=== PATIENT | male | born 1940 | race Caucasian/White ===

== ENCOUNTER 2019-04-01 05:10 | Inpatient (IN) | payer MEDICARE ==
[~2019-04-01] VITALS: Ht 162.6 cm; Wt 90.4 kg
--- NOTE | 2019-04-01 05:19 | NUR ---
received report from Denzel, patient transferred from [facility], c/o sudden low back pain radiates to upper back / neck and chest started around 1730. CT scan shows possible AAA, dissection or plague. 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 on pacemaker. patient alert and oriented. had total of 2.5 mg dilaudid and 50 mcg fentanyl INSURANCE VERIFICATION REP.
[2019-04-01] MEDS ORDERED: LABETALOL 250 MG in DEXTROSE 5% 200 ML IV PRN (05:30)
[2019-04-01] MEDS ORDERED: LABETALOL 5MG/ML, 20ML IVPush ONE (05:30)
[2019-04-01] MEDS ORDERED: PLEASE ENTER ALLERGIES MC SCH (05:30)
--- NOTE | 2019-04-01 05:30 | NUR ---
ERP on the phone with Vascular Surgeon.
--- NOTE | 2019-04-01 05:45 | NUR ---
ERP at bedside talking to patient about the plan of care. No surgery at this time.
--- NOTE | 2019-04-01 05:53 | NUR ---
technical training instructor at bedside for blood draw.
[2019-04-01] MEDS ORDERED: METO-93 PO (06:00)
[2019-04-01] MEDS ORDERED: LOSA50TA14 PO (06:00)
[2019-04-01] MEDS ORDERED: CALC60FO2 TP (06:00)
[2019-04-01] MEDS ORDERED: HYDR25TA11 PO (06:00)
[2019-04-01] MEDS ORDERED: TERA10CA3 PO (06:00)
[2019-04-01] MEDS ORDERED: APRE30TA2 PO (06:00)
[2019-04-01] MEDS ORDERED: DOCU240C53 PO (06:00)
[2019-04-01] MEDS ORDERED: HYDR-3342 PO (06:00)
[2019-04-01] MEDS ORDERED: NITR0.4T28 SL (06:00)
[2019-04-01] MEDS ORDERED: ATOR-2 PO (06:00)
[2019-04-01] MEDS ORDERED: FINA5TAB4 PO (06:00)
[2019-04-01] MEDS ORDERED: DICL1KIT14 TP (06:00)
[2019-04-01] MEDS ORDERED: DEXA4TAB66 PO (06:00)
[2019-04-01] MEDS ORDERED: FURO-92 PO (06:00)
[2019-04-01] MEDS ORDERED: SPIR50TA4 PO (06:00)
[2019-04-01] MEDS ORDERED: TRAZ50TA66 PO (06:00)
[2019-04-01] MEDS ORDERED: OMEP-110 PO (06:00)
[2019-04-01] MEDS ORDERED: ISOS30TA8 PO (06:00)
[2019-04-01] MEDS ORDERED: CLOB15CR19 TP (06:00)
[2019-04-01] MEDS ORDERED: urea (06:05)
[2019-04-01 06:14] LABS: ALBUMIN 3.4 g/dL (3.4-5.0); ANION GAP 10 mmol/L (5-15); CALCIUM 8.3 mg/dL (8.5-10.1); CHLORIDE 117 mmol/L (98-107)
[2019-04-01 06:20] LABS: CREATININE 2.64 mg/dL (0.7-1.3); TROPONIN I 0.039 ng/mL (0.000-0.045)
--- NOTE | 2019-04-01 06:22 | NUR ---
patient sleeping, respiration unlabored. no complaints of pain.
--- NOTE | 2019-04-01 06:48 | NUR ---
Report from Jorge BECKER. Pt resting in bed with eyes closed, resp even and unlabored, DIMA.
--- NOTE | 2019-04-01 07:22 | NUR ---
Pt resting in bed with eyes closed, easily awakens to this RN entering room. Pt denies needs.
--- NOTE | 2019-04-01 07:34 | NUR ---
Report called to Lai BECKER on card tele. Floor ready for pt transport.
[2019-04-01 08:00] VITALS: BP 171/83
[2019-04-01] MEDS ORDERED: MULT-658 PO (08:46)
[2019-04-01] MEDS ORDERED: ASPI-496 PO (08:46)
[2019-04-01] MEDS ORDERED: CALC0.25 PO (08:46)
[2019-04-01] MEDS ORDERED: POTA20TA91 PO (08:46)
[2019-04-01] MEDS ORDERED: OMEG1CAP24 PO (08:46)
[2019-04-01] MEDS ORDERED: ONDANSETRON 2MG/ML, 2ML IVPush PRN (09:00)
[2019-04-01] MEDS ORDERED: CYCLOBENZAPRINE 10 MG TABLET PO PRN (09:00)
[2019-04-01] MEDS ORDERED: GUAIFENESIN/COD200MG-20MG/10ML LIQUID PO PRN (09:00)
[2019-04-01] MEDS ORDERED: hydrALAzine 20 MG/ML, 1ML IVPush PRN (09:00)
[2019-04-01] MEDS ORDERED: DICLOFENAC SODIUM TP PRN (09:00)
[2019-04-01] MEDS ORDERED: ACETAMINOPHEN 325 MG TABLET PO PRN (09:00)
[2019-04-01] MEDS: METOPROLOL SUCCINATE 50 MG TAB.ER.24H PO SCH (09:00)
[2019-04-01] MEDS ORDERED: CLOBETASOL PROPIONATE CRM 0.05%, 15GM TP SCH ×3 (09:00→19:42)
[2019-04-01] MEDS: FINASTERIDE 5 MG TABLET PO SCH (09:00)
[2019-04-01] MEDS ORDERED: DOCUSATE 100 MG CAPSULE PO PRN (09:00)
[2019-04-01] MEDS ORDERED: CALCITRIOL 0.25 MCG CAPSULE PO SCH (09:00)
[2019-04-01] MEDS: morphine SULFATE 10 MG/ML, 1ML IVPush PRN ×2 (09:20→21:05)
[2019-04-01] MEDS: MULTIVITAMIN 1 TABLET PO SCH (10:23)
[2019-04-01] MEDS: OMEGA-3/FISH OIL CAPSULE PO SCH (10:23)
[2019-04-01] MEDS: DOCUSATE CALCIUM 240 MG CAPSULE PO SCH (10:23)
[2019-04-01] MEDS: OMEPRAZOLE 20 MG CAPSULE.DR PO SCH (10:23)
[2019-04-01] MEDS: POTASSIUM CHLORIDE 20 MEQ TAB.ER.PRT PO SCH ×2 (10:23→20:49)
[2019-04-01] MEDS: SPIRONOLACTONE 50 MG TABLET PO SCH ×2 (10:23→20:50)
[2019-04-01] MEDS: ASPIRIN 81 MG TABLET EC PO SCH (10:24)
[2019-04-01] MEDS: LOSARTAN 50MG TABLET PO SCH ×2 (10:24→20:49)
[2019-04-01] MEDS: ISOSORBIDE MONONITRATE ER 30 MG TABLET PO SCH (10:24)
[2019-04-01] MEDS: FUROSEMIDE 20 MG TABLET PO SCH (10:24)
[2019-04-01 12:50] LABS: TROPONIN I 0.022 ng/mL (0.000-0.045)
[2019-04-01 14:33] VITALS: BP 157/72
[2019-04-01] MEDS: INSULIN LISPRO 100 UNITS/ML, PEN SQ-INSULIN SCH ×2 (16:00→20:41)
[2019-04-01] MEDS: OXYcodone IR 5MG TABLET PO PRN (17:17)
[2019-04-01 18:30] LABS: TROPONIN I 0.026 ng/mL (0.000-0.045)
[2019-04-01 19:33] VITALS: BP 162/67
[2019-04-01] MEDS ORDERED: CALCIPOTRIENE TP SCH (21:00)
[2019-04-01] MEDS ORDERED: TERAZOSIN 5MG CAPSULE PO SCH (21:00)
[2019-04-01] MEDS ORDERED: ATORVASTATIN 80 MG TABLET PO SCH (21:00)
[2019-04-01] MEDS ORDERED: TRAZODONE 50MG TABLET PO SCH (21:00)
[2019-04-01] MEDS ORDERED: BETAMETHASONE TP SCH (21:00)
[2019-04-02 02:55] VITALS: BP 154/75
[2019-04-02 05:43] LABS: ANION GAP 5 mmol/L (5-15); CALCIUM 8.3 mg/dL (8.5-10.1); CHLORIDE 116 mmol/L (98-107); CREATININE 2.74 mg/dL (0.7-1.3)
[2019-04-02 05:53] LABS: CHOL/HDL RATIO 3.1; CHOLESTEROL, TOTAL 100 mg/dL (140-239); HDL CHOL % 32 % (26-37); HDL CHOLESTEROL (DIRECT) 32 mg/dL (40-60); LDL CHOLESTEROL,CALCULATED 35 mg/dL (54-169); LDL/HDL RATIO 1.1 (0.5-3.0); TRIGLYCERIDES 163 mg/dL (50-200); VLDL CHOLESTEROL 33 mg/dL (0-25)
[2019-04-02 06:00] LABS: BASOPHILS # (AUTO) 0.02 x10^3/uL (0-0.1); BASOPHILS % (AUTO) 0 % (0-1); EOSINOPHILS # (AUTO) 0.24 x10^3/uL (0-0.4); EOSINOPHILS % (AUTO) 3 % (1-7); LYMPHOCYTES # (AUTO) 1.48 x10^3/uL (1-3.4); LYMPHOCYTES % (AUTO) 18 % (22-44); MD NO; MEAN CORPUSCULAR HEMOGLOBIN 31.6 pg (27.5-34.5); MEAN CORPUSCULAR HGB CONC 32.4 g/dL (33.2-36.2); MEAN CORPUSCULAR VOLUME 97.6 fL (81-97); MEAN PLATELET VOLUME 8.4 fL (7.4-10.4); MONOCYTES # (AUTO) 0.65 x10^3/uL (0.2-0.8); MONOCYTES % (AUTO) 8 % (2-9); NEUTROPHILS # (AUTO) 5.88 x10^3/uL (1.8-6.8); NEUTROPHILS % (AUTO) 71 % (42-75); PLATELET COUNT 178 x10^3/uL (130-400); RED BLOOD COUNT 3.45 x10^6/uL (4.38-5.82); RED CELL DISTRIBUTION WIDTH 12.8 % (9.4-14.8)
[2019-04-02] MEDS: INSULIN LISPRO 100 UNITS/ML, PEN SQ-INSULIN SCH ×2 (07:00→11:58)
[2019-04-02] MEDS: SPIRONOLACTONE 50 MG TABLET PO SCH (08:09)
[2019-04-02] MEDS: OMEPRAZOLE 20 MG CAPSULE.DR PO SCH (08:09)
[2019-04-02] MEDS: FUROSEMIDE 20 MG TABLET PO SCH (08:09)
[2019-04-02] MEDS: OMEGA-3/FISH OIL CAPSULE PO SCH (08:09)
[2019-04-02] MEDS: FINASTERIDE 5 MG TABLET PO SCH (08:09)
[2019-04-02] MEDS: DOCUSATE CALCIUM 240 MG CAPSULE PO SCH (08:09)
[2019-04-02] MEDS: METOPROLOL SUCCINATE 50 MG TAB.ER.24H PO SCH (08:09)
[2019-04-02] MEDS: LOSARTAN 50MG TABLET PO SCH (08:09)
[2019-04-02] MEDS: POTASSIUM CHLORIDE 20 MEQ TAB.ER.PRT PO SCH (08:09)
[2019-04-02] MEDS: MULTIVITAMIN 1 TABLET PO SCH (08:10)
[2019-04-02] MEDS: ASPIRIN 81 MG TABLET EC PO SCH (08:10)
[2019-04-02] MEDS: ISOSORBIDE MONONITRATE ER 30 MG TABLET PO SCH (08:10)
[2019-04-02] MEDS: OXYcodone IR 5MG TABLET PO PRN (09:08)
[2019-04-02] MEDS: morphine SULFATE 10 MG/ML, 1ML IVPush PRN (11:59)
[2019-04-02 15:31] VITALS: BP_SYST 159; BP_SYST 164; BP_DIAS 69; BP_DIAS 70
== END 2019-04-02 16:39 | disposition home or self-care (01) | DRG 303 ==
LOC: ED 05:44 → EDIP 07:00 → 5SO 07:45
PROVIDERS: ADMIT Internal Medicine; ATTEND Internal Medicine
DX: I25.10 Atherosclerotic heart disease of native coronary artery without angina pectoris (principal); N18.4 Chronic kidney disease, stage 4 (severe); I13.0 Hypertensive heart and chronic kidney disease with heart failure and stage 1 through stage 4 chronic kidney disease, or unspecified chronic kidney disease; I50.22 Chronic systolic (congestive) heart failure; E27.8 Other specified disorders of adrenal gland; E78.5 Hyperlipidemia, unspecified; J44.9 Chronic obstructive pulmonary disease, unspecified; M17.12 Unilateral primary osteoarthritis, left knee; N40.0 Benign prostatic hyperplasia without lower urinary tract symptoms; Z96.651 Presence of right artificial knee joint; Z79.82 Long term (current) use of aspirin; Z79.899 Other long term (current) drug therapy; Z85.46 Personal history of malignant neoplasm of prostate; I25.2 Old myocardial infarction; Z88.8 Allergy status to other drugs, medicaments and biological substances; Z87.891 Personal history of nicotine dependence; Z95.5 Presence of coronary angioplasty implant and graft; Z87.820 Personal history of traumatic brain injury; Z90.49 Acquired absence of other specified parts of digestive tract; Z95.810 Presence of automatic (implantable) cardiac defibrillator
CPT/HCPCS: 36415; 80048; 80061; 82040; 82962; 83735; 84100; 84443; 84484; 85025; 93005; 93306; 96374; G0378; J2270

== ENCOUNTER → 2020-09-19 | Outpatient (CLI) | payer MEDICARE ==
[~2020-09-19] MED LIST: APRE30TA2 PO; ASPI-496 PO; ATOR-2 PO; CALC0.25 PO; CALC60FO2 TP; CLOB15CR19 TP; DEXA4TAB66 PO; DICL1KIT14 TP; DOCU240C53 PO; FINA5TAB4 PO; FURO-92 PO; HYDR-3342 PO; HYDR-826 PO; ISOS30TA8 PO; LOSA50TA14 PO; METO-93 PO; MULT-658 PO; NITR0.4T28 SL; OMEG1CAP24 PO; OMEP-110 PO; POTA20TA91 PO; SPIR50TA4 PO; TERA10CA3 PO; TRAZ50TA66 PO; urea
== END | disposition home or self-care (01) ==
LOC: CFH 08:54
PROVIDERS: ATTEND Surgery
DX: I25.10 Atherosclerotic heart disease of native coronary artery without angina pectoris (principal); I71.00 Dissection of unspecified site of aorta; Q25.49 Other congenital malformations of aorta
CPT/HCPCS: 71250